=== PATIENT | female | born 1980 | race Caucasian/White ===

== ENCOUNTER 2018-11-28 05:29 | Inpatient (IN) | payer BC ==
[2018-11-28] MEDS ORDERED: Lactated Ringers 1,000 ML IV SCH (06:00)
[2018-11-28] MEDS ORDERED: cefOXitin 2 GM Vial ONE ×2 (06:56→07:12)
[2018-11-28] MEDS ORDERED: Oxytocin 10 Units/1 ML SDV ONE ×2 (06:56→07:12)
[2018-11-28] MEDS ORDERED: ePHEDrine 50 MG/ML SDV ONE (07:12)
[2018-11-28] MEDS ORDERED: Naloxone 0.4 MG/ML SDV IVPUSH PRN (07:17)
[2018-11-28] MEDS ORDERED: Naloxone 0.4 MG/ML SDV IV PRN (07:20)
[2018-11-28] MEDS: HYDROmorphone/Normal Saline 15 MG/30 ML PCA IV PRN (07:50)
[2018-11-28] MEDS ORDERED: Dexamethasone 4 MG/ML SDV ONE (08:02)
[2018-11-28] MEDS ORDERED: Ondansetron 4 MG/2 ML SDV ONE (08:02)
[2018-11-28] MEDS ORDERED: Ondansetron 4 MG/2 ML SDV IVPUSH PRN (09:51)
[2018-11-28] MEDS ORDERED: Dextrose 5%-Lactated Ringers 1,000 ML IV SCH ×2 (10:00→14:30)
[2018-11-28] MEDS: cefOXitin 2 GM in Sodium Chloride 0.9% 50 ML IV SCH ×2 (14:37→20:38)
[2018-11-29] MEDS: cefOXitin 2 GM in Sodium Chloride 0.9% 50 ML IV SCH (01:05)
[2018-11-29] MEDS: HYDROmorphone/Normal Saline 15 MG/30 ML PCA IV PRN (02:10)
[2018-11-29] MEDS: Calcium Carbonate 500 MG Tab.Chew PO PRN ×2 (05:08→12:11)
--- NOTE | 2018-11-29 07:48 | PN ---
DATE OF SERVICE: 11/29/2018 SUBJECTIVE: Leena is postop day 1 following a section. She states her pain is controlled using the PATIENT ACCOUNT SPECIALIST. She has been up ambulating. Vital signs have been stable. Oral intake 2250. Urine output via Mustafa catheter 2950. She has no concerns or questions. Remainder review of systems negative for any pertinent positives and negatives. OBJECTIVE: GENERAL: Leena is a 38-year-old female, alert, orientated. VITAL SIGNS: TPR is 98.1, 101, 15, blood pressure 143/86. HEENT: Negative. NECK: Supple. HEART: Regular rate and rhythm. LUNGS: Clear. ABDOMEN: Dressings dry and intact. Abdominal binder is on. EXTREMITIES: Without peripheral edema. SCDs are currently off. ASSESSMENT: Repeat section, excision of peritoneal nodule, for term with history of previous , a 1 cm cystic peritoneal nodule over the lower uterus. DATE OF SURGERY: 11/28/2018. SURGEON: Sidney Wright MD. PLAN: 1. Discontinue Mustafa catheter. 2. Regular diet. 3. Percocet 5/325 mg 1 to 2 every 4 hours p.r.n. pain. 4. Folic acid 0.4 mg p.o. b.i.d. 5. Multivitamin 1 tablet oral daily. 6. Procardia 10 mg p.o. b.i.d. 7. Convert IV to saline lock. 8. Discontinue D5 LR. 9. Discontinue continuous pulse ox. 10.Discontinue PATIENT ACCOUNT SPECIALIST. 11.Continue Accu-Cheks. 12.Dressing off, may shower. 13.We will evaluate p.r.n. or in a.m. Tracy Obrien PA-C /[id number]
[2018-11-29] MEDS: Acetaminophen/oxyCODONE 325-5 MG Tab PO PRN ×4 (08:13→20:00)
[2018-11-29] MEDS ORDERED: NIFEdipine 10 MG Cap PO SCH (09:00)
[2018-11-29] MEDS: Multivitamins with Iron/Calcium/Folic Acid/Minerals Tab PO SCH (09:13)
[2018-11-29] MEDS: Ibuprofen 600 MG Tab PO SCH ×3 (09:13→18:32)
[2018-11-29] MEDS: Docusate Sodium 100 MG Cap PO SCH ×2 (09:13→20:01)
[2018-11-29] MEDS: Labetalol 100 MG Tab PO SCH ×2 (09:13→20:00)
[2018-11-29] MEDS: Folic Acid 1 MG Tab PO SCH ×2 (09:14→20:01)
[2018-11-30] MEDS: Ibuprofen 600 MG Tab PO SCH ×4 (00:33→19:02)
[2018-11-30] MEDS: Acetaminophen/oxyCODONE 325-5 MG Tab PO PRN ×4 (00:36→19:03)
[2018-11-30] MEDS ORDERED: Lanolin 100% Cream 40 GM Tube TOP PRN (07:04)
[2018-11-30] MEDS ORDERED: Magnesium Hydroxide 400 MG/5 ML Susp 30 ML Cup PO ONE (07:45)
--- NOTE | 2018-11-30 08:48 | PN ---
DATE OF SERVICE: 11/30/2018 SUBJECTIVE: Leena's vital signs have been stable. Activity is good. Oral intake is 3300. Urine output is 1950. She is passing flatus but has not had a bowel movement. REVIEW OF SYSTEMS: Remainder of review of systems was negative for any pertinent positives and negatives. OBJECTIVE: GENERAL: Leena Haas is a 38-year-old female, alert and orientated. VITAL SIGNS: Temperature is 98, pulse is 102, respiratory rate is 16, and blood pressure is 127/73. HEENT: Negative. NECK: Supple. HEART: Regular rate and rhythm. PULMONARY: Lungs are clear. ABDOMEN: Aquacel dressing is on. EXTREMITIES: Without peripheral edema. ASSESSMENT: Repeat section and excision of peritoneal nodule for term with history of previous , 1-cm cystic peritoneal nodule over the lower uterus. Date of surgery was 11/28/2018. Surgeon was Sidney Wright MD. PLAN: Milk of magnesia 30 mL one time today. Continue ambulation and good pulmonary toilet. Plan to discharge in a.. Tracy Obrien PA-C /[id number]
[2018-11-30] MEDS: Docusate Sodium 100 MG Cap PO SCH ×2 (09:05→20:37)
[2018-11-30] MEDS: Folic Acid 1 MG Tab PO SCH ×2 (09:06→20:38)
[2018-11-30] MEDS: Multivitamins with Iron/Calcium/Folic Acid/Minerals Tab PO SCH (09:06)
[2018-11-30] MEDS: Labetalol 100 MG Tab PO SCH ×2 (09:08→20:37)
[2018-12-01] MEDS: Ibuprofen 600 MG Tab PO SCH ×2 (01:27→09:33)
[2018-12-01] MEDS: Acetaminophen/oxyCODONE 325-5 MG Tab PO PRN ×2 (05:05→10:51)
[2018-12-01] MEDS ORDERED: Magnesium Hydroxide 400 MG/5 ML Susp 30 ML Cup PO ONE (09:00)
--- NOTE | 2018-12-01 09:12 | DISCH ---
ADMISSION, DIAGNOSES: 1. Term . 2. Gestational diabetes. 3. Hypertension. DISCHARGE DIAGNOSES: Repeat and excision of peritoneal nodule for term with history of previous and 1 cm cystic peritoneal nodule over the lower uterus. Date of surgery: 11/28/2018. Surgeon: Sidney Wright MD. HISTORY: Leena Haas is a 38-year-old female with term and scheduled repeat C- section. After preoperative evaluation and discussion of possible risks and possible complications, she wished to proceed with surgical procedure. HOSPITAL COURSE: section was on 11/28/2018. She delivered a healthy viable male. She had no operative complications. On postoperative day #1, her Mustafa catheter was discontinued, started regular diet, changed to oral pain medication, and her home medications were restarted. On postoperative day #2, she was given bowel stimulation, and on postop day #3, she was able to be discharged to home without any complications. She is breast feeding. PHYSICAL EXAMINATION: GENERAL: Leena Haas is a 38-year-old female. VITAL SIGNS: Height is 5 feet 2.99 inches, weight is 224 pounds. TPR is 97.7, 98, 18, blood pressure 141/82. HEENT: Negative. NECK: Supple. HEART: Regular rate and rhythm. LUNGS: Clear. ABDOMEN: Aquacel dressing is on. Stapled incision is clean and dry. Abdominal binder is on. EXTREMITIES: Without peripheral edema. Ileana were removed prior to discharge and Steri-Strips were tightly applied. There was a small opening about half a centimeter per nursing staff in lower incision and this was secured with Steri-Strips and Steri-Strips were sent home with the patient. DISPOSITION: Discharged to home. CONDITION: Stable and improving. FOLLOWUP APPOINTMENT: On 12/06/2018 at 11 a.m. HOME MEDICATIONS: 1. Percocet 5/325 mg 1 to 2 tablets every 4 hours p.r.n. pain #40. 2. Colace 100 mg p.o. b.i.d. #100. 3. Motrin 600 mg oral q.6 h. p.r.n. pain #40. 4. Lanolin topical use as directed 40 g tube given at hospital, she will take this home. 5. Milk of magnesia 30 mL one daily, two were sent home with the patient to take one daily p.r.n. constipation. She is to resume her home medication of: 1. Colace 100 mg b.i.d. 2. Folic acid 0.4 mg oral twice daily. 3. Multivitamin one daily. 4. Procardia 10 mg oral twice daily. DIET: Usual diet as tolerated. Drink 8 to 10 glasses of water a day. ACTIVITY: No lifting more than baby and car seat for 6 weeks. Driving: Do not drive for 1 week and while on Percocet. Shower/bathing; may shower. DISCHARGE INSTRUCTIONS: Notify provider if any fever, increased pain, drainage. Wound incision care, keep site clean and dry. Wear abdominal binder for 6 weeks and then as tolerated. SPECIAL INSTRUCTIONS: Use incentive spirometer 10 times every hour while awake.
[2018-12-01] MEDS: Folic Acid 1 MG Tab PO SCH (09:33)
[2018-12-01] MEDS: Docusate Sodium 100 MG Cap PO SCH (09:33)
[2018-12-01] MEDS: Multivitamins with Iron/Calcium/Folic Acid/Minerals Tab PO SCH (09:33)
[2018-12-01] MEDS: Labetalol 100 MG Tab PO SCH (09:34)
--- NOTE | 2018-12-04 12:04 | OR ---
DATE OF PROCEDURE: 11/28/2018 PREOPERATIVE DIAGNOSIS: Term with history of previous section. POSTOPERATIVE DIAGNOSES: 1. Term with history of previous section. 2. 1 cm cystic peritoneal nodule over left anterolateral uterine wall. OPERATIVE PROCEDURES: 1. Repeat section (41836). 2. Excision of peritoneal nodule located on left anterolateral aspect of uterus (32790). ANESTHESIA: Spinal. ASSISTANTS: Jolene Adler CNM; and SOURAV Wade. INDICATION FOR PROCEDURE: This is a 38-year-old female presenting with term and history of previous section. The plan is to proceed with repeat section with spinal anesthetic. Potential risks including bleeding, infection, injury to mother and/or baby, as well as possible cardiopulmonary, septic, or hemorrhagic complications leading to were discussed, and the patient wishes to proceed. DETAILS OF PROCEDURE: The patient was taken to the operating room. After spinal anesthetic was placed, she was positioned in the supine position with a roll underneath the right hip. Mustafa catheter was inserted. The abdomen was then prepped and draped. Previous midline incision was then reused and carried down through the full-thickness abdominal wall. Upon entering the peritoneal cavity, a general exploration was undertaken. The patient was noted to have a 1-cm cystic nodular lesion on the lower anterolateral aspect of the uterus. This was excised and sent as a separate specimen. Peritoneal reflection around the uterus was reflected downward. A transverse lower uterine segment incision was made and a viable male infant was delivered through vertex presentation. The cord was clamped and cut. It was notable that the cord had a fairly significant knot within it, but otherwise the baby appeared to be in very good condition. Routine care was given off the field per Jolene Adler. Placenta and membranes were delivered without difficulty. The patient was given IV intrauterine oxytocin and IV cefoxitin. Good uterine contractions were noted. The uterus was then closed with 2 layers of 2-0 Vicryl stitch, which was also used to close the peritoneal reflection in the bladder. At that point, no further problems were noted. The incision was then closed with a classic two-layer closure of the lower midline incision with both layers of #2 Vicryl stitch. Subcutaneous tissue was then approximated with some 3-0 Vicryl stitch and subdermal layer of 4-0 Vicryl stitch was then placed along with erin. Prior to closure of the subcutaneous tissue, the area had been irrigated with antibiotic-containing saline solution. The patient was taken to the recovery room in a satisfactory condition. There were no evident complications. Sidney Wright MD /[id number]
== END 2018-12-01 11:10 | disposition home or self-care (01) | DRG 540 ==
LOC: JP.SDS 05:29 → JP.SDSSCHI 07:49 → JP.MS 08:36
PROVIDERS: ADMIT Surgery; ATTEND Surgery
PROC: 10D00Z0 Extraction of Products of Conception, High, Open Approach (ICD-10-PCS; principal; 2018-11-28)
PROC: 0UB90ZX Excision of Uterus, Open Approach, Diagnostic (ICD-10-PCS; 2018-11-28)
DX: O34.211 Maternal care for low transverse scar from previous cesarean delivery (principal); O24.425 Gestational diabetes mellitus in childbirth, controlled by oral hypoglycemic drugs; O99.89 Other specified diseases and conditions complicating pregnancy, childbirth and the puerperium; Z3A.38 38 weeks gestation of pregnancy; Z37.0 Single live birth; N85.8 Other specified noninflammatory disorders of uterus; O13.4 Gestational [pregnancy-induced] hypertension without significant proteinuria, complicating childbirth; O99.334 Smoking (tobacco) complicating childbirth; F17.210 Nicotine dependence, cigarettes, uncomplicated; O69.2XX0 Labor and delivery complicated by other cord entanglement, with compression, not applicable or unspecified
CPT/HCPCS: 36415; 59409; 80305-QW; 82962; 85027; 86850; 86900; 86901; 88305; 88307; 94762; A9270-GY; J0694; J1100; J1170; J2405; J2590; J7042; J7050; J7120